=== PATIENT | female | born 1970 | race Caucasian/White ===

== ENCOUNTER 2019-03-29 11:07 | Day surgery (SDC) ==
[2019-03-22 14:29] LABS: HEMATOCRIT 42.5 % (37.0-47.0); HEMOGLOBIN 13.8 g/dL (12.0-16.0); MCHC 32.5 g/dL (33-37); MCV 95.5 FL (81-99); RBC 4.45 XMIL (4.2-5.4); RDW 12.8 % (11.5-14.5); WBC 6.55 X1000 (4.8-10.8)
[2019-03-22 14:36] LABS: INR 0.92; PROTIME 13.1 Seconds (11.0-16.0)
[2019-03-22 15:16] LABS: AGAP 11; BUN 17 mg/dL (8-22); CALCIUM 9.2 mg/dL (8.8-10.2); CHLORIDE 105 mmol/L (98-107); COSMO 284; CREATININE 0.7 mg/dL (0.5-0.9); ESTIMATED GFR > 60; GLUCOSE 83 mg/dL (70-104); POTASSIUM 4.4 mmol/L (3.5-5.1); SODIUM 142 mmol/L (136-145); TCO2 26 mmol/L (25-35)
[~2019-03-29 11:07] MED LIST: DIPRIVAN 1% ONE; XYLOCAINE-MPF 2% ONE
[2019-03-29] MEDS ORDERED: PEPCID ONE (11:46)
[2019-03-29] MEDS ORDERED: REGLAN ONE (11:46)
[2019-03-29] MEDS ORDERED: KEFZOL 1 GM/D5W 2 GM/100 ML IVPB ONE (11:46)
[2019-03-29] MEDS ORDERED: LR 1,000 ML ONE ×2 (11:46→17:14)
[2019-03-29] MEDS ORDERED: SENSORCAINE 0.25%/EPI 1:200,000 ONE (12:25)
[2019-03-29] MEDS ORDERED: SODIUM CHLORIDE 0.9% ONE (12:25)
[2019-03-29] MEDS ORDERED: METROGEL-VAGINAL 0.75% GEL ONE (12:25)
[2019-03-29] MEDS ORDERED: TORADOL ONE (14:23)
[2019-03-29] MEDS ORDERED: ZOFRAN ONE (14:23)
[2019-03-29] MEDS ORDERED: DECADRON ONE (14:23)
[2019-03-29] MEDS ORDERED: BACITRACIN ONE (14:26)
[2019-03-29] MEDS ORDERED: NEOSPORIN G.U. IRRIGANT ONE (14:26)
[2019-03-29] MEDS ORDERED: OFIRMEV 1000 MG/ISOTONIC SOLN 1,000 MG/100 ML BOTTLE ONE (16:55)
[2019-03-29 16:56] LABS: URINE SOURCE CATH
[2019-03-29] MEDS ORDERED: D5 1/2 NS 1,000 ML ONE (16:56)
[2019-03-29] MEDS ORDERED: MORPHINE IV PRN (16:58)
[2019-03-29 17:00] LABS: BILIRUBIN URINE NEGATIVE (NEGATIVE); BLOOD URINE NEGATIVE (NEGATIVE); COLOR STRAW; GLUCOSE URINE NEGATIVE (NEGATIVE); KETONE URINE NEGATIVE (NEGATIVE); LEUKOCYTES URINE NEGATIVE (NEGATIVE); NITRITE URINE NEGATIVE (NEGATIVE); PROTEIN URINE NEGATIVE (NEGATIVE); TURBIDITY URINE CLEAR (CLEAR); UROBILINOGEN URINE NORMAL (NORMAL)
[2019-03-29] MEDS ORDERED: BENADRYL IV PRN (17:00)
[2019-03-29] MEDS ORDERED: SODIUM CHLORIDE 0.9% INJ PRN (17:00)
[2019-03-29] MEDS ORDERED: ZOFRAN IV PRN (17:00)
[2019-03-29] MEDS ORDERED: DITROPAN PO PRN (17:00)
[2019-03-29] MEDS ORDERED: PHENERGAN PR PRN (17:00)
[2019-03-29] MEDS ORDERED: PHENERGAN IV PRN (17:00)
[2019-03-29] MEDS ORDERED: DILAUDID IV PRN (17:00)
[2019-03-29] MEDS ORDERED: BENADRYL LIQUID PO PRN (17:00)
[2019-03-29] MEDS ORDERED: OXY IR PO PRN ×2 (17:00)
[2019-03-29] MEDS ORDERED: PHENERGAN PO PRN (17:00)
[2019-03-29] MEDS ORDERED: OFIRMEV 1000 MG/ISOTONIC SOLN 1,000 MG/100 ML BOTTLE IV PRN (17:00)
[2019-03-29] MEDS ORDERED: LABETALOL IV PRN (17:00)
[2019-03-29 17:02] LABS: UR EPITHELIAL CELLS <10 /HPF (<10); URINE BACTERIA NEGATIVE /HPF; URINE RBC <10 /HPF (<10); URINE WBC <10 /HPF (<10)
[2019-03-29] MEDS ORDERED: DILAUDID ONE (17:09)
[2019-03-29] MEDS ORDERED: D5 1/2 NS 1,000 ML IV SCH (18:00)
[2019-03-29] MEDS: PERIDEX MT SCH (21:00)
[2019-03-29] MEDS: COLACE PO SCH (21:01)
[2019-03-29] MEDS: KEFZOL 2 GM/D5W 2 GM/50 ML IVPB IV SCH (21:01)
[2019-03-30] MEDS: TYLENOL PO PRN ×2 (00:32→07:35)
[2019-03-30] MEDS: KEFZOL 2 GM/D5W 2 GM/50 ML IVPB IV SCH (05:53)
[2019-03-30 07:26] VITALS: BP 114/61
[2019-03-30 07:26] LABS: HEMOGLOBIN 11.3 g/dL (12.0-16.0); MCH 31.5 PG (27-31); MCHC 32.3 g/dL (33-37); MCV 97.5 FL (81-99); MPV 11.7 FL (7.4-10.4); RBC 3.59 XMIL (4.2-5.4); RDW 12.7 % (11.5-14.5); WBC 15.42 X1000 (4.8-10.8)
[2019-03-30 07:41] LABS: AGAP 11; BUN 10 mg/dL (8-22); CALCIUM 8.3 mg/dL (8.8-10.2); CHLORIDE 106 mmol/L (98-107); COSMO 280; CREATININE 0.7 mg/dL (0.5-0.9); ESTIMATED GFR > 60; GLUCOSE 122 mg/dL (70-104); POTASSIUM 4.5 mmol/L (3.5-5.1); SODIUM 140 mmol/L (136-145); TCO2 23 mmol/L (25-35)
[2019-03-30] MEDS: COLACE PO SCH (08:56)
[2019-03-30] MEDS: PERIDEX MT SCH (08:57)
[2019-03-30] MEDS ORDERED: LEXAPRO PO SCH (09:00)
[2019-03-30] MEDS ORDERED: BUSPAR PO SCH (09:00)
[2019-03-30] MEDS ORDERED: ALLEGRA PO SCH (09:00)
[2019-03-30] MEDS ORDERED: PATIENT'S OWN MED PO SCH (09:00)
[2019-03-30] MEDS ORDERED: THERA M PLUS PO SCH (09:00)
[2019-03-30] MEDS ORDERED: VITAMIN D PO SCH (09:00)
[2019-03-30] MEDS ORDERED: TYLENOL PO PRN (17:00)
--- NOTE | 2019-06-10 12:05 | OPERATIVE NOTE ---
PROCEDURE DATE: 03/29/2019 SURGEON: Dr. Ancelmo Washington. PREOPERATIVE DIAGNOSES: 1. Cystocele. 2. Rectocele. 3. Vaginal vault prolapse. 4. Stress urinary incontinence. POSTOPERATIVE DIAGNOSES: 1. Cystocele. 2. Rectocele. 3. Vaginal vault prolapse. 4. Stress urinary incontinence. PROCEDURE NAME: 1. Cystocele repair with [place] Dermis. 2. Rectocele repair with [place] Dermis. 3. Extraperitoneal vaginal vault suspension. 4. Placement of Altis midurethral sling. 5. Cystourethroscopy x2. INDICATIONS: A 48-year-old female who has had a hysterectomy and has had anterior and posterior compartment prolapse. It is symptomatic and bothers her. She has had a history of stress urinary incontinence. She was counseled of abdominal versus vaginal approach, as well as the use of suture versus mesh, abdominal versus graft, and wants to proceed with the latter. FINDINGS: Cystourethroscopy revealed no evidence of bladder or urethral injury after cystocele repair. Cystourethroscopy showed no evidence of bladder or urethral injury after sling placement. Digital rectal examination revealed no palpable injury to the rectum. The graft appeared to lay fairly flat without redundancy or folding after anterior and posterior repair respectively. DESCRIPTION OF PROCEDURE: After obtaining informed consent, the patient was brought to the operating room. Perioperative antibiotics and anesthesia were administered. She was placed in the lithotomy position with her upper and lower extremities appropriately padded. A 16-Malawian Moreno catheter was introduced and the bladder was drained. A colorectal retractor was used for exposure. Then 40 mL of Marcaine with epinephrine diluted 50:50 with normal saline was used to perform hydrodissection and local anesthetic between the bladder neck and vaginal apex. A 15 blade was then used to make an incision of approximately 7 to 8 cm over her anterior vaginal wall. I utilized full-thickness dissection. Metzenbaum scissors and eventually surgeon's finger was used to free the bladder from the vaginal epithelium. This was done laterally on both sides until the ischial spine and sacrospinous ligaments were palpated. Those were cleared off for approximately 2 to 3 cm with a finger sweep. I then dissected anterior toward the bladder neck, identifiable by gentle tugging on the balloon of the Moreno. We then dissected posteriorly to the level of the vaginal cuff. Then 2-0 PDS suture x2 was placed at the level of the vaginal cuff and secured with hemostats. I then used a Digitek device to place sutures through the sacrospinous ligaments bilaterally approximately 2 cm medial to the ischial spine. Those was secured with a hemostat. The same device was used then to put 2 sutures through the obturator membrane. Again, sutures were secured with a hemostat. We then prepared the graft on the back table by trimming it to accommodate the patient's anatomy. Prior to that, it was soaked in saline for approximately 5 minutes. A free needle was then used to thread the previously placed PDS sutures as well as the Digitek sutures through the edges of the graft per robotic machine tender production's instructions. Those sutures was then tied, allowing the graft to elevate the bladder. The graft appeared to lay flat without redundancy. It did not appear to be overly tight. I placed 2 PDS sutures at the level of the bladder neck to secure the anterior and superior portions of the graft in the middle. We then removed Moreno catheter and performed cystourethroscopy with a 70-degree lens. The urethra showed no evidence of injury. Bladder showed no evidence of mucosal lesions or injury. She did have a few mild trabeculations. No sizable diverticula were seen. I was able to visualize bilateral clear ureteral efflux. The cystoscope was then removed and Moreno catheter was reinserted. The wound was copiously irrigated and 2-0 Vicryl suture was then used to reapproximate deeper tissue over the graft in order to assist imbibition. Following that, the wound was irrigated again and the vaginal epithelium was trimmed approximately 1 cm in thickness on either side. I then reapproximated the wound edges with a running 2-0 Vicryl suture. The sutures were tension free. Attention was then turned to posterior repair. There were 20 mL of Marcaine with epinephrine diluted 50:50 with normal saline used to perform hydrodissection from the vaginal cuff to the perineum. Approximately a 5 cm incision was made with a 15 blade with dissection extending through the entire vaginal thickness. Metzenbaum scissors were once again used as well as surgeon's finger until the rectum was dissected off the vaginal wall and sacrospinous ligament was palpated. I was also able to palpate the previously placed sutures for anterior repair. Following that, a 6 x 8 [place] Dermis mesh was prepared on the back table by soaking it in saline for 5 minutes and then trimming it to accommodate the patient's anatomy. I used the Digitek device again to place 2 sutures through the sacrospinous ligament, doing this lateral to the anteriorly placed sutures. Those were secured with hemostats. We then used a free needle to thread those previously placed sutures through the ends of the dermis graft. I placed 2-0 PDS suture x2 at the vaginal cuff as well, allowing us to suspend the apex of the vagina. I then placed interrupted 2-0 PDS sutures through the graft and then lateral vaginal attachments in order to reduce the rectocele. Upon completion, it appeared to be reduced to the level of the perineum. Digital rectal examination was performed without any evidence of rectal injury on palpation. We copiously irrigated the wound and closed the subcutaneous tissues with a 2-0 Vicryl suture to again assist imbibition. This was followed by another irrigation in the wound and closure of the vaginal epithelium with a running 2-0 Vicryl. I did not trim the excess tissue posteriorly. Following that, attention was turned to the Altis sling. We used 10 more mL of Marcaine with epinephrine diluted with normal saline at the level of mid urethra. Approximately a 3 cm incision was made with a 15 blade. Metzenbaum scissors were used to perform periurethral dissection. The surgeon's small finger was used to palpate to the obturator membrane on either side. The sling was opened and soaked in saline. Per robotic machine tender production instructions, helical trocars were used in the inside-out fashion to place the sling. The tension was adjusted appropriately with the tension suture. The Moreno catheter was removed and cystourethroscopy was performed with a 70-degree lens. There was no evidence of injury to the urethra or the bladder noted. I was able to visualize bilateral clear ureteral efflux. We then removed the cystoscope and replaced the Moreno catheter. The wound was irrigated. A 3-0 Vicryl suture was used in a running fashion to close the epithelium. I then placed vaginal packing coated with Flagyl gel and the Moreno catheter was kept to gravity drainage. Following that, she was extubated and taken to the PACU for further recovery. ESTIMATED BLOOD LOSS: 200 mL. COMPLICATIONS: None. SPECIMENS REMOVED: None submitted to pathology. The redundant anterior vaginal epithelium was discarded. DRAINS: A 16-Malawian Moreno catheter. DISPOSITION: To PACU with packing in place and catheter to gravity drainage. cc: Ancelmo Washington MD
== END 2019-03-30 10:02 | disposition home or self-care (01) ==
LOC: 4N 11:07 → OR 11:07
PROVIDERS: ATTEND Urology